=== PATIENT | male | born 1940 | race Caucasian/White ===

== ENCOUNTER 2021-04-05 04:03 | Inpatient (IN) | payer MEDICARE ==
[2021-04-05] VITALS (22 sets, daily range): BP systolic 70–157; BP diastolic 26–117
[~2021-04-05] VITALS: Ht 172.7 cm; Wt 84.5 kg
--- NOTE | 2021-04-05 04:13 | NUR ---
PT BIB RA 839 FROM [facility] FOR UNWITNESSED MECHANICAL FALL, ACCOMPANIED BY CAREGIVER. FOUND ON THE FLOOR NEXT TO BED. NO SOB OR LABORED BREATHING. MINIMAL SPEECH BUT NORMAL FOR PT, NO CHANGES IN LOC PER CORPORATE OPERATIONS COMPLIANCE MANAGER.
--- NOTE | 2021-04-05 04:22 | NUR ---
DR. DODSON AT BEDSIDE, MSE IN PROGRESS.
[2021-04-05] MEDS ORDERED: ROSU40TA PO (04:31)
[2021-04-05] MEDS ORDERED: APIX5TAB PO (04:31)
[2021-04-05] MEDS ORDERED: DIVA250T4 PO (04:31)
[2021-04-05] MEDS ORDERED: POTA-10 PO (04:31)
[2021-04-05] MEDS ORDERED: PANT20TA2 PO (04:31)
[2021-04-05] MEDS ORDERED: FINA5TAB3 PO (04:31)
[2021-04-05] MEDS ORDERED: TRAZ-257 PO (04:31)
[2021-04-05] MEDS ORDERED: CHOL400C8 PO (04:31)
[2021-04-05] MEDS ORDERED: SERT50TA PO (04:31)
[2021-04-05] MEDS ORDERED: DILTIAZEM HCL 25 MG IV IV ONE ×4 (04:45→09:00)
[2021-04-05] MEDS ORDERED: LIDOCAINE 2% (UROJET) 10 ML JELLY MM ONE ×2 (04:45→04:51)
--- NOTE | 2021-04-05 04:56 | NUR ---
LAB AT BEDSIDE.
[2021-04-05 05:08] LABS: HEMATOCRIT 45.5 % (36.7-47.1); MEAN CORPUSCULAR HEMOGLOBIN 31.2 uug (23.8-33.4); MEAN CORPUSCULAR VOLUME 93.2 fL (73.0-96.2); PLATELET COUNT (AUTO) 114 K/uL (152-348)
[2021-04-05] MEDS ORDERED: MAGNESIUM SULFATE/D5W 200 ML ONE (05:08)
[2021-04-05] MEDS ORDERED: DILTIAZEM HCL 25 MG IV ONE ×4 (05:08→08:59)
[2021-04-05 05:15] LABS: MAGNESIUM 2.3 mg/dL (1.8-2.4)
[2021-04-05] MEDS: MAGNESIUM SULFATE/D5W 100 ML IV SCH (05:15)
[2021-04-05 05:17] LABS: CREATININE 0.9 mg/dL (0.6-1.3); POTASSIUM 3.6 mmol/L (3.5-5.1)
[2021-04-05 05:22] LABS: *BILIRUBIN,URIN NEGATIVE (NEGATIVE); *BLOOD, URINE 3+ (NEGATIVE); *CLARITY,URINE CLEAR (CLEAR); *COLOR,URINE YELLOW (YELLOW); *KETONES,URINE NEGATIVE (NEGATIVE); LEUKOCYTE ESTERASE ,URINE NEGATIVE (NEGATIVE); NITRITE, URINE NEGATIVE (NEGATIVE); UGLUCOSE NEGATIVE (NEGATIVE)
--- NOTE | 2021-04-05 05:27 | NUR ---
PT TAKEN TO CT.
[2021-04-05 05:30] LABS: THYROID STIMULATING HORMONE 2.91 mIU/mL (0.358-3.740)
[2021-04-05 05:33] LABS: BACTERIA,URINE NONE SEEN /HPF (NONE SEEN); RBC,URINE TNTC /HPF (0-3); SQUAMOUS EPITHELIAL CELL,UR FEW /HPF (NONE SEEN); WBC,URINE 0-3 /HPF (0-3)
--- NOTE | 2021-04-05 05:43 | NUR ---
PT RETURNED FROM CT.
[2021-04-05] MEDS ORDERED: POTASSIUM BICARBONATE/CIT AC 25 MEQ TABLET.EFF PO ONE (05:45)
[2021-04-05 05:48] LABS: BAND % (MANUAL) 2 % (0-10); LYMPHOCYTES % (MANUAL) 3 % (20-40); MONOCYTES % (MANUAL) 4 % (2-10); NEUTROPHILS % (MANUAL) 91 % (42-75)
[2021-04-05] MEDS ORDERED: POTASSIUM BICARBONATE/CIT AC 25 MEQ TABLET.EFF ONE (05:52)
[2021-04-05] MEDS ORDERED: PROPOFOL 200 MG/20 ML BOTTLE IV ONE (06:00)
[2021-04-05] MEDS ORDERED: FENTANYL CITRATE 100 MCG/2 ML AMPUL IV ONE (06:00)
[2021-04-05] MEDS ORDERED: PROPOFOL 100 ML ONE (06:18)
[2021-04-05] MEDS ORDERED: FENTANYL CITRATE 100 MCG/2 ML AMPUL ONE (06:19)
--- NOTE | 2021-04-05 06:40 | NUR ---
PT CARDIOVERTED SCENE FOLLOWED. DR. DODSON, RT AND NURSES AT BEDSIDE. PATIENT GIVEN 150 J AT 0619 2ND SHOCK 150 J AT 0621 3RD SHOCK 200 J AT 0621 4TH SHOCK 200 J AT 0622
--- NOTE | 2021-04-05 06:43 | NUR ---
[facility] CALLED FOR PANEL.
--- NOTE | 2021-04-05 07:09 | NUR ---
GAVE REPORT TO TOÑA BANKS. PT NOTED TO BE IN BED. VITALS STABLE. NO SOB OR LABORED BREATHING. CAREGIVER AT BEDSIDE.
[2021-04-05] MEDS ORDERED: ATEN25TA PO (08:27)
--- NOTE | 2021-04-05 08:50 | NUR ---
Paged admitting Md Dr Morataya, regarding pt's increased a fib rate, awaiting call back.
--- NOTE | 2021-04-05 09:10 | NUR ---
MRSA and COVID swabs collected and sent to LAB.
[2021-04-05] MEDS ORDERED: Z GUARD REMEDY PASTE 57 GM TUBE TOP PRN (09:30)
[2021-04-05] MEDS ORDERED: MAGNESIUM HYDROXIDE 30 ML LIQUID UDC PO PRN (09:30)
[2021-04-05] MEDS ORDERED: ONDANSETRON 4 MG/2 ML VIAL IV PRN (09:30)
--- NOTE | 2021-04-05 09:30 | NUR ---
Spoke to Dr Morataya, order recieved to start pt on Cardizem drip per protocol. Pt BP remaines stable. Dr Wei cardio consult.
[2021-04-05] MEDS: DILTIAZEM HCL IV 125 MG in IV NORMAL SALINE 100 ML IV PRN ×2 (09:55→20:54)
--- NOTE | 2021-04-05 09:56 | NUR ---
Dr Wei at the bedside for MSE.
--- NOTE | 2021-04-05 10:03 | NUR ---
Cardizem increased to 10 mg/hr per Dr Sanjuana starkey.
--- NOTE | 2021-04-05 11:30 | NUR ---
Received patient from ER NURse. Patient in rapid afib with Cardizem drip running at 10Mg/hr, hemodynamically stable, with fever of 101. Requested lactic acid and notified Dr. grewal of left food redness and hot. US ordered of lower extremities. Notified dr cueto of redness and wound, andd lactic acid ordered. Bedside swallow eval completed and patient able to take whole pills with thin liquids
[2021-04-05] MEDS: IV NS 1000 ML 1,000 ML IV PRN (12:00)
--- NOTE | 2021-04-05 12:00 | NUR ---
Relayed results of lactic acid to Dr. Read in unit. No new orders at this time. Continue fluids per cardiology.
[2021-04-05] MEDS: DILTIAZEM HCL CD 240 MG CAP.SR.24H PO SCH (12:02)
[2021-04-05] MEDS: ACETAMINOPHEN 325 MG TABLET PO PRN ×2 (12:07→17:26)
[2021-04-05] MEDS: DIVALPROEX 250 MG TABLET.DR PO SCH ×2 (14:32→16:33)
--- NOTE | 2021-04-05 15:30 | NUR ---
Patient's Vidhi and son visited. Plan of care discussed. discussed code status and wants patient DNR/DNI. Tmoas Read notified. Addendum: 04/05/21 at 1832 by ELLA IBARRA RN Amended: Links added.
--- NOTE | 2021-04-05 16:30 | NUR ---
Code status DNR/DNI ordered. PM care done. Air mattress applied to bed. Skin care provided. Patient continues to grimace during care but remains non verbal.
[2021-04-05] MEDS: APIXABAN 5 MG TABLET PO SCH (16:33)
[2021-04-05 17:04] LABS: BILIRUBIN,DIRECT 0.1 mg/dL (0.0-0.2); BILIRUBIN,TOTAL 0.8 mg/dL (0.2-1.0)
--- NOTE | 2021-04-05 17:30 | NUR ---
Medicated with Tylenol po; med crushed and given with applesauce. Dinner served with maximum assist. No swallowing difficulty. Addendum: 04/05/21 at 1840 by ELLA IBARRA RN Amended: Links added.
--- NOTE | 2021-04-05 19:30 | NUR ---
Patient mildly restless, face flushed, skin warm and dry. Rectal temp xyskecz=557.3. Cool bath given. Patient repositioned; skin care provided. Prerna Read notified.
--- NOTE | 2021-04-05 20:05 | NUR ---
Spoke to Prerna Read. Plan of care discussed; orders received. Addendum: 04/05/21 at 2045 by ELLA IBARRA RN Amended: Links added. Addendum: 04/05/21 at 2045 by ELLA IBARRA RN Amended: Links added. Addendum: 04/05/21 at 2045 by ELLA IBARRA RN Amended: Links added. Addendum: 04/05/21 at 2045 by ELLA IBARRA RN Amended: Links added. Addendum: 04/05/21 at 2045 by ELLA IBARRA RN Amended: Links added. Addendum: 04/05/21 at 7 by ELLA IBARRA RN Amended: Links added.
--- NOTE | 2021-04-05 20:10 | NUR ---
Urine culture ordered. Spoke to Godwin in the lab re: urine culture order and to use specimen already in the lab.
[2021-04-05] MEDS: ATORVASTATIN 40 MG TABLET PO SCH (20:11)
[2021-04-05] MEDS: TRAZODONE 100 MG TABLET PO SCH (20:11)
[2021-04-05] MEDS ORDERED: IBUPROFEN 800 MG TABLET PO ONE (20:15)
[2021-04-05] MEDS ORDERED: IBUPROFEN 800 MG TABLET ONE (21:10)
[2021-04-06] VITALS (31 sets, daily range): BP systolic 90–159; BP diastolic 43–102
[2021-04-06] MEDS ORDERED: CEFTRIAXONE 2 G in IV DEXTROSE 5% 100 ML IV SCH (00:45)
[2021-04-06] MEDS: IV NS 1000 ML 1,000 ML IV PRN ×2 (00:59→18:18)
[2021-04-06] MEDS ORDERED: VANCOMYCIN IV 1,750 MG in IV DEXTROSE 5% 500 ML IV ONE (01:15)
[2021-04-06] MEDS ORDERED: VANCOMYCIN 1000 MG VIAL ONE (01:36)
[2021-04-06] MEDS ORDERED: CEFTRIAXONE 1 G VIAL ONE (01:37)
[2021-04-06] MEDS: ACETAMINOPHEN 325 MG TABLET PO PRN ×3 (03:23→20:46)
[2021-04-06 05:48] LABS: MEAN CORPUSCULAR HEMOGLOBIN 31.2 uug (23.8-33.4); MEAN CORPUSCULAR VOLUME 94.2 fL (73.0-96.2); PLATELET COUNT (AUTO) 75 K/uL (152-348)
[2021-04-06 05:59] LABS: BILIRUBIN,TOTAL 0.5 mg/dL (0.2-1.0); MAGNESIUM 2.3 mg/dL (1.8-2.4); PHOSPHOROUS 2.4 mg/dL (2.5-4.9); POTASSIUM 3.6 mmol/L (3.5-5.1)
[2021-04-06 06:18] LABS: BAND % (MANUAL) 14 % (0-10); LYMPHOCYTES % (MANUAL) 4 % (20-40); MONOCYTES % (MANUAL) 3 % (2-10); NEUTROPHILS % (MANUAL) 79 % (42-75)
--- NOTE | 2021-04-06 06:31 | NUR ---
Restless on and off during the night. Grimacing during repositioning and turning. Medicated with Tylenol PRN. po. for fever and pain. No swallowing difficulty. Incontinent of large strong smelly, semi soft, pasty brown stools. Tomas Read here. Aware of patient's condition. Orders received. Complete bath given; skin care provided. Stool for c diff sent to lab.
--- NOTE | 2021-04-06 06:38 | NUR ---
Remains on Cardizem drip at 10 mg/H. research physiologist still Afib rate 90's-110's. BPs stable.
--- NOTE | 2021-04-06 07:00 | NUR ---
Spoke to patient's Vidhi; consent for PICC line insertion obtained by phone. Asset Protection Lead Tiffany notified.
[2021-04-06] MEDS: PANTOPRAZOLE SODIUM 40 MG TABLET.DR PO SCH (07:09)
[2021-04-06] MEDS ORDERED: IV NS 1000 ML 1,000 ML IV ONE (07:30)
--- NOTE | 2021-04-06 07:45 | NUR ---
Received patient during IV insertion with x-ray confirmation. Patient is awake and alert, able to answer closed ended questions. Denies any pain. 3 lumen PICC inserted to left upper arm. Orders okay to start using PICC entered and carried out. Left forearm IV 20 g, patent and intact. Infusing normal saline at 75ml/hour. Still noted anxious and pulling at his lines. Rogers catheter is draining tonja urine. Safety measures initiated, repositioned. Call light within reach.
[2021-04-06] MEDS: SERTRALINE HCL 50 MG TABLET PO SCH (08:10)
[2021-04-06] MEDS: FINASTERIDE 5 MG TABLET PO SCH (08:10)
[2021-04-06] MEDS: APIXABAN 5 MG TABLET PO SCH ×2 (08:11→16:44)
[2021-04-06] MEDS: DIVALPROEX 250 MG TABLET.DR PO SCH ×3 (08:11→16:38)
[2021-04-06] MEDS: DILTIAZEM HCL CD 240 MG CAP.SR.24H PO SCH (08:12)
[2021-04-06] MEDS: DILTIAZEM HCL IV 125 MG in IV NORMAL SALINE 100 ML IV PRN (08:13)
[2021-04-06] MEDS ORDERED: ATENOLOL 25 MG TABLET PO SCH (09:00)
[2021-04-06] MEDS ORDERED: ROSUVASTATIN CALCIUM 40 MG PO SCH (09:00)
[2021-04-06] MEDS ORDERED: CEFEPIME HCL 1 G in IV DEXTROSE 5% 50 ML IV SCH (14:00)
[2021-04-06] MEDS: CEFEPIME HCL 1 G in IV DEXTROSE 5% 50 ML IV SCH (14:47)
[2021-04-06] MEDS ORDERED: NEUTRA PHOS PACKET PO ONE (15:45)
[2021-04-06] MEDS: VANCOMYCIN IV 1,000 MG in IV DEXTROSE 5% 250 ML IV SCH (16:43)
[2021-04-06] MEDS: ENSURE ENLIVE (VAN) 240 ML LIQUID PO SCH (17:00)
[2021-04-06] MEDS ORDERED: PHENYLEPHRINE IV 50 MG in IV NORMAL SALINE 245 ML IV PRN (19:45)
[2021-04-06] MEDS: ATORVASTATIN 40 MG TABLET PO SCH (20:46)
[2021-04-06] MEDS: TRAZODONE 100 MG TABLET PO SCH (20:46)
[2021-04-07] VITALS (24 sets, daily range): BP systolic 94–152; BP diastolic 47–91
[2021-04-07] MEDS: CEFEPIME HCL 1 G in IV DEXTROSE 5% 50 ML IV SCH ×2 (01:31→13:41)
[2021-04-07] MEDS: ACETAMINOPHEN 325 MG TABLET PO PRN (02:25)
--- NOTE | 2021-04-07 03:31 | NUR ---
Noted with increased heart rate 113-137. Orders noted and carried out for EKG. Patient is at rest and non symptomatic. Sleeping and easily arousable.
--- NOTE | 2021-04-07 04:11 | NUR ---
Dr. Masters made aware of patient sustaining HR of 130's with occasional 140's. B/p 148/63. Asymptomatic. Stat EKG reading is A-Fib with rapid ventricular response. with 138BMP. Orders to restart Cardizem drip.
[2021-04-07] MEDS ORDERED: DILTIAZEM HCL 25 MG IV ONE (04:45)
[2021-04-07] MEDS: DILTIAZEM HCL IV 125 MG in IV NORMAL SALINE 100 ML IV PRN ×2 (04:50→17:26)
--- NOTE | 2021-04-07 04:50 | NUR ---
Started Cardizem 125mg in 100 normal saline at 5mg. Unable to sign for it in EMAR due to units required. HR is 138 at this time.
--- NOTE | 2021-04-07 05:15 | NUR ---
Cardizem titrated to 10mg/ hr. Hr remains in the 130's with occasional decrease to 117-118. Patient remains asymptomatic. B/P 100/65.
[2021-04-07] MEDS: VANCOMYCIN IV 1,000 MG in IV DEXTROSE 5% 250 ML IV SCH ×2 (05:38→19:49)
[2021-04-07 05:53] LABS: HEMATOCRIT 37.5 % (36.7-47.1); MEAN CORPUSCULAR HEMOGLOBIN 31.5 uug (23.8-33.4); MEAN CORPUSCULAR VOLUME 93.2 fL (73.0-96.2); PLATELET COUNT (AUTO) 54 K/uL (152-348)
[2021-04-07 05:58] LABS: ALANINE AMINOTRANSFERASE 20 U/L (16-63); ALKALINE PHOSPHATASE 56 U/L (50-136); ASPARTATE AMINOTRANSFERASE 21 U/L (15-37); BILIRUBIN,TOTAL 0.5 mg/dL (0.2-1.0); CARBON DIOXIDE 26 mmol/L (21-32); CHLORIDE 107 mmol/L (98-107); CREATININE 0.8 mg/dL (0.6-1.3); GLUCOSE 122 mg/dL (74-106); MAGNESIUM 2.3 mg/dL (1.8-2.4); PHOSPHOROUS 2.2 mg/dL (2.5-4.9); POTASSIUM 3.8 mmol/L (3.5-5.1); TOTAL PROTEIN, SERUM 5.2 g/dL (6.4-8.2); UREA NITROGEN, BLOOD 18 mg/dL (7-18)
[2021-04-07] MEDS: PANTOPRAZOLE SODIUM 40 MG TABLET.DR PO SCH (06:00)
[2021-04-07 06:20] LABS: BAND % (MANUAL) 7 % (0-10); EOSINOPHILS % (MANUAL) 1 % (0-8); LYMPHOCYTES % (MANUAL) 3 % (20-40); MONOCYTES % (MANUAL) 7 % (2-10); NEUTROPHILS % (MANUAL) 82 % (42-75)
[2021-04-07] MEDS: DIVALPROEX 250 MG TABLET.DR PO SCH ×3 (08:02→17:26)
[2021-04-07] MEDS: DILTIAZEM HCL CD 240 MG CAP.SR.24H PO SCH (08:02)
[2021-04-07] MEDS: FINASTERIDE 5 MG TABLET PO SCH (08:03)
[2021-04-07] MEDS: ENSURE ENLIVE (VAN) 240 ML LIQUID PO SCH ×2 (08:06→17:26)
[2021-04-07] MEDS: APIXABAN 5 MG TABLET PO SCH (08:12)
[2021-04-07] MEDS: SERTRALINE HCL 50 MG TABLET PO SCH (08:25)
[2021-04-07] MEDS: IV NS 1000 ML 1,000 ML IV PRN ×2 (09:18→23:35)
[2021-04-07] MEDS ORDERED: NEUTRA PHOS PACKET PO ONE (15:15)
--- NOTE | 2021-04-07 20:00 | NUR ---
received pt resting on bed with ongoing cardizem drip at 10mg/hr; repositioned for comfort; safety maintained; dark brown urine output from bonds observed.
[2021-04-07] MEDS: TRAZODONE 100 MG TABLET PO SCH (20:33)
[2021-04-07] MEDS: ATORVASTATIN 40 MG TABLET PO SCH (20:41)
[2021-04-08] VITALS (23 sets, daily range): BP systolic 110–151; BP diastolic 58–106
--- NOTE | 2021-04-08 | NUR ---
repositioned q2h; safety maintained; remains tachy 100-120 bpm afib rvr on tele; needs attended.
[2021-04-08] MEDS: CEFEPIME HCL 1 G in IV DEXTROSE 5% 50 ML IV SCH (01:14)
[2021-04-08] MEDS ORDERED: DILTIAZEM HCL 25 MG IV ONE (03:21)
[2021-04-08] MEDS ORDERED: DILTIAZEM HCL 50 MG IV ONE (03:21)
[2021-04-08] MEDS: DILTIAZEM HCL IV 125 MG in IV NORMAL SALINE 100 ML IV PRN (04:30)
[2021-04-08 05:18] LABS: HEMATOCRIT 35.4 % (36.7-47.1); MEAN CORPUSCULAR HEMOGLOBIN 31.9 uug (23.8-33.4); MEAN CORPUSCULAR VOLUME 91.9 fL (73.0-96.2)
[2021-04-08 05:29] LABS: PLATELET COUNT (AUTO) 46 K/uL (152-348)
[2021-04-08 05:31] LABS: CARBON DIOXIDE 29 mmol/L (21-32); CHLORIDE 108 mmol/L (98-107); CREATININE 0.7 mg/dL (0.6-1.3); GLUCOSE 107 mg/dL (74-106); PHOSPHOROUS 2.4 mg/dL (2.5-4.9); POTASSIUM 3.8 mmol/L (3.5-5.1); UREA NITROGEN, BLOOD 15 mg/dL (7-18)
[2021-04-08 05:58] LABS: EOSINOPHILS % (MANUAL) 3 % (0-8); LYMPHOCYTES % (MANUAL) 3 % (20-40); MONOCYTES % (MANUAL) 7 % (2-10); NEUTROPHILS % (MANUAL) 87 % (42-75)
[2021-04-08] MEDS: PANTOPRAZOLE SODIUM 40 MG TABLET.DR PO SCH (06:16)
[2021-04-08] MEDS: SERTRALINE HCL 50 MG TABLET PO SCH (08:24)
[2021-04-08] MEDS: ENSURE ENLIVE (VAN) 240 ML LIQUID PO SCH ×2 (08:24→17:12)
[2021-04-08] MEDS: FINASTERIDE 5 MG TABLET PO SCH (08:24)
[2021-04-08] MEDS: DILTIAZEM HCL CD 240 MG CAP.SR.24H PO SCH (08:25)
[2021-04-08] MEDS: DIVALPROEX 250 MG TABLET.DR PO SCH ×3 (08:26→17:12)
[2021-04-08] MEDS ORDERED: DIGOXIN 500 MCG/2 ML AMP IV ONE ×2 (09:00→15:00)
--- NOTE | 2021-04-08 09:00 | NUR ---
Pulmonary services, Dr. Ruiz in the unit to see and examine pt. report given see order hx.
--- NOTE | 2021-04-08 09:00 | NUR ---
Cardiology services, Dr. Ruiz in the unit to see and examine pt. report given and orders received and implemented. Addendum: 04/08/21 at 1706 by JESUS STERN RN Orders to dcd cardideidra alicia once pt's heart rate less than 100.
[2021-04-08] MEDS: VANCOMYCIN IV 1,000 MG in IV DEXTROSE 5% 250 ML IV SCH (09:10)
[2021-04-08] MEDS ORDERED: FUROSEMIDE 20 MG/2 ML VIAL IV ONE (09:30)
--- NOTE | 2021-04-08 12:28 | NUR ---
WOUND CARE CONSULT: PT PRESENTS WITH LEFT 2ND TOE DISCOLORATION/DRY SCAB WHICH WAS PRESENT ON ADMISSION PER NURSING STAFF. REDNESS AND SWELLING NOTED TO LEFT LOWER EXTREMITY. DR SAUCEDO NOTIFIED OF DPM CONSULT REQUEST. RECOMMENDATIONS MADE FOR SKIN PROTECTION. DISCUSSED WITH NURSING STAFF. MD IN AGREEMENT WITH PLAN OF CARE.
[2021-04-08] MEDS: CLINDAMYCIN PHOSPHATE IV 600 MG in IV DEXTROSE 5% 100 ML IV SCH ×2 (13:51→21:44)
[2021-04-08] MEDS: ACETAMINOPHEN 325 MG TABLET PO PRN (16:00)
[2021-04-08] MEDS ORDERED: NEUTRA PHOS PACKET PO ONE (16:30)
--- NOTE | 2021-04-08 19:00 | NUR ---
received patient awake , unable to follow command , picc line , intact remy , bonds intact , oxygen 4l , nc , swelling on bilateral ankle noted with redness noted more prominent on left leg , afib on 102 hr , with sbp 137/81 , 94% saturation , no fever noted
--- NOTE | 2021-04-08 19:00 | NUR ---
received patient cardizem maral dc'd as reported , patient received 2x digoxin ivp today
[2021-04-08] MEDS: TRAZODONE 100 MG TABLET PO SCH (20:33)
[2021-04-08] MEDS: ATORVASTATIN 40 MG TABLET PO SCH (20:33)
--- NOTE | 2021-04-08 20:51 | NUR ---
nora squires , is here at bedside , called the and gave an update on patient's condition
[2021-04-09] VITALS (22 sets, daily range): BP systolic 123–169; BP diastolic 66–115
[2021-04-09] MEDS: ACETAMINOPHEN 325 MG TABLET PO PRN ×2 (01:07→10:48)
[2021-04-09] MEDS ORDERED: DILTIAZEM HCL IV 125 MG in IV NORMAL SALINE 100 ML IV PRN ×2 (04:30→08:00)
[2021-04-09] MEDS ORDERED: DILTIAZEM HCL 25 MG IV ONE (05:03)
[2021-04-09] MEDS: CLINDAMYCIN PHOSPHATE IV 600 MG in IV DEXTROSE 5% 100 ML IV SCH ×3 (05:15→22:06)
[2021-04-09 05:19] LABS: HEMATOCRIT 36.9 % (36.7-47.1); MEAN CORPUSCULAR HEMOGLOBIN 31.5 uug (23.8-33.4); MEAN CORPUSCULAR VOLUME 92.6 fL (73.0-96.2); PLATELET COUNT (AUTO) 52 K/uL (152-348)
--- NOTE | 2021-04-09 05:30 | NUR ---
rachel is called to inform of increasing hear rate , waiting for call back
[2021-04-09 05:32] LABS: CREATININE 0.7 mg/dL (0.6-1.3); MAGNESIUM 2.2 mg/dL (1.8-2.4); PHOSPHOROUS 3.2 mg/dL (2.5-4.9); POTASSIUM 3.6 mmol/L (3.5-5.1)
--- NOTE | 2021-04-09 06:00 | NUR ---
dr joshua is called again for the heart rate , waiting for call still
[2021-04-09] MEDS: PANTOPRAZOLE SODIUM 40 MG TABLET.DR PO SCH (06:41)
--- NOTE | 2021-04-09 07:15 | NUR ---
Received pt. sleeping easily arousable. Hemodynamically unstable Afib uncontrolled in the 130's 140's with sbp within desired limits. On 2Lnc with saturation above 92% no tachynea or sob noted. bonds to gravity. Iv line patent. Will continue with care plan.
--- NOTE | 2021-04-09 07:50 | NUR ---
A call back from drill press operator numerical control Dr. Ruiz He was updated on pt's current condition and orders to restart pt. on cardize drip received and implemented.
[2021-04-09] MEDS: ENSURE ENLIVE (VAN) 240 ML LIQUID PO SCH ×2 (08:16→17:36)
[2021-04-09] MEDS: DIVALPROEX 250 MG TABLET.DR PO SCH ×3 (08:17→17:36)
[2021-04-09] MEDS: SERTRALINE HCL 50 MG TABLET PO SCH (08:19)
[2021-04-09] MEDS: FINASTERIDE 5 MG TABLET PO SCH (08:19)
[2021-04-09] MEDS: DILTIAZEM HCL CD 240 MG CAP.SR.24H PO SCH (08:21)
[2021-04-09] MEDS ORDERED: DILTIAZEM HCL CD 120 MG CAP.SR.24H PO ONE (10:00)
[2021-04-09] MEDS ORDERED: DIGOXIN 500 MCG/2 ML AMP IV ONE (10:00)
--- NOTE | 2021-04-09 11:38 | NUR ---
Dr. Mckeon laminator hand in the unit to see and examine pt. report given see order hx.
[2021-04-09] MEDS: METOPROLOL TARTRATE 50 MG TABLET PO SCH ×2 (15:36→22:07)
--- NOTE | 2021-04-09 15:54 | NUR ---
cardiology services, Dr. Ruiz in the unit to see and examine pt. orders received and implemented.
--- NOTE | 2021-04-09 15:56 | NUR ---
HR sustained in the 80's and 90's and cardizem drip stopped as ordered. Dr. Ruiz informed.
[2021-04-09] MEDS ORDERED: hydrALAZINE HCL 20 MG/1 ML VIAL IV PRN (18:30)
--- NOTE | 2021-04-09 18:30 | NUR ---
A call to Dr. Ruiz to update him on pt's current sbp above 160's consistently during the last hour. Orders received. and recommendations to give medication if sbp is above 170's on resting state, not restless or agitated reading.
--- NOTE | 2021-04-09 18:37 | NUR ---
Left pt. on bed resting neurologically stable responsive to name only. On NC 2L joaquin. well with saturation within desired limits. Hemodynamically stable rate controlled after receiving first dose of metoprolol. Off cardizem drip since 1600. Afebrile. Tolerating diet well with no n/v/d. bonds to gravity. IV line patent. No injury sustained no skin breakdown. Will endorse for continuity of care plan.
--- NOTE | 2021-04-09 18:51 | NUR ---
A call from Jay Humphreys report given and as stated I'll put orders to down-grade pt. to DAMON and if Pt needs to go back on cardizem drip it will be a fixed dose only". Awaiting orders.
--- NOTE | 2021-04-09 19:00 | NUR ---
rcceived patient sleeping , arousable to name and light touch . oxygen nc 4 l , picc line and bonds intact , no fever noted
--- NOTE | 2021-04-09 20:14 | NUR ---
shaw , id is at bedside
[2021-04-09] MEDS: ATORVASTATIN 40 MG TABLET PO SCH (20:47)
[2021-04-09] MEDS: TRAZODONE 100 MG TABLET PO SCH (20:49)
--- NOTE | 2021-04-09 21:00 | NUR ---
gave report to carmen , history and current status , procedures ,medications , no belongings . order picker by primary nurse and financial planning assistant
[2021-04-10 04:50] VITALS: BP 156/99
[2021-04-10] MEDS: CLINDAMYCIN PHOSPHATE IV 600 MG in IV DEXTROSE 5% 100 ML IV SCH ×3 (06:13→23:07)
[2021-04-10] MEDS: METOPROLOL TARTRATE 50 MG TABLET PO SCH ×3 (06:17→23:36)
[2021-04-10] MEDS: PANTOPRAZOLE SODIUM 40 MG TABLET.DR PO SCH (06:23)
[2021-04-10 08:00] VITALS: BP 148/109
--- NOTE | 2021-04-10 08:00 | NUR ---
RESTING COMFORTABLY IN BED NO SS OF PAIN OR DISTRESS, ASSISTED FOR BREAKFAST ATE 100% OF FOOD PORTION. REMAINS AFIB ON MONITOR 100-108/MIN. CONTINUE CURRENT TX PLAN
[2021-04-10] MEDS: SERTRALINE HCL 50 MG TABLET PO SCH (08:46)
[2021-04-10] MEDS: ENSURE ENLIVE (VAN) 240 ML LIQUID PO SCH ×2 (08:46→17:51)
[2021-04-10] MEDS: FINASTERIDE 5 MG TABLET PO SCH (08:46)
[2021-04-10] MEDS: DIVALPROEX 250 MG TABLET.DR PO SCH ×3 (08:46→17:51)
[2021-04-10] MEDS: DILTIAZEM HCL CD 180 MG CAP.SR.24H PO SCH (08:48)
--- NOTE | 2021-04-10 10:15 | NUR ---
PATIENT FOUND BY BARNWORKER GROOM ON THE FLOOR INSIDE HIS ROOM LEANING AGAINST THE WALL. PATIENT CAN'T REMEMBER WHAT HE DID. ROUTINE HEAD TO TOE POST FALL ASSESSMENT DONE, NO BRUISING, NO LIMITATION ON ALL EXTREMITIES. ASSISTED BACK TO BED. VITAL SIGNS WNL. WILL NOTIFY FAMILY AND HOSPITALIST
[2021-04-10 10:35] LABS: HEMATOCRIT 39.7 % (36.7-47.1); MEAN CORPUSCULAR HEMOGLOBIN 31.3 uug (23.8-33.4); PLATELET COUNT (AUTO) 68 K/uL (152-348)
[2021-04-10 11:24] LABS: BILIRUBIN,TOTAL 0.5 mg/dL (0.2-1.0); CREATININE 0.6 mg/dL (0.6-1.3); MAGNESIUM 2.2 mg/dL (1.8-2.4); POTASSIUM 3.7 mmol/L (3.5-5.1); TOTAL PROTEIN, SERUM 5.3 g/dL (6.4-8.2)
[2021-04-10 12:00] VITALS: BP 141/96
--- NOTE | 2021-04-10 12:00 | NUR ---
RESTING COMFORTABLY IN BED NO ACUTE CHANGE FROM MORNING ASSESSMENT
--- NOTE | 2021-04-10 13:00 | NUR ---
AND SON IN INFORMED ABOUT INCIDENT BOTH VERY SUPPORTIVE WITH CARE. PATIENT REMAINS ALERT BUT CONFUSED, NO SS OF PAIN OR TAMAYO, NO N/V
[2021-04-10 16:49] VITALS: BP 131/95
--- NOTE | 2021-04-10 18:52 | NUR ---
NO ILL EFFECT FROM FALL NOTED, AWAITING CT HEAD RESULTS. CONTROLLED AFIB ON MONITOR
--- NOTE | 2021-04-10 19:30 | NUR ---
Received patient in Miracle chair. Patient is confused, he is sleeping intermittently. Patient is kept comfortably and kept monitored. Patient is stable at this time. Safety precautions implemented. Will continue to monitor.
[2021-04-10 20:00] VITALS: BP 111/59
[2021-04-10] MEDS: ATORVASTATIN 40 MG TABLET PO SCH (21:18)
[2021-04-10] MEDS: TRAZODONE 100 MG TABLET PO SCH (21:18)
[2021-04-10 23:17] LABS: NEUTROPHILS % (MANUAL) 0 % (42-75)
[2021-04-11] VITALS: BP 143/97
[2021-04-11 04:00] VITALS: BP 155/95
[2021-04-11] MEDS: CLINDAMYCIN PHOSPHATE IV 600 MG in IV DEXTROSE 5% 100 ML IV SCH ×3 (06:10→21:09)
[2021-04-11] MEDS: METOPROLOL TARTRATE 50 MG TABLET PO SCH ×3 (06:11→23:03)
[2021-04-11] MEDS: PANTOPRAZOLE SODIUM 40 MG TABLET.DR PO SCH (06:11)
[2021-04-11] MEDS: SERTRALINE HCL 50 MG TABLET PO SCH (08:01)
[2021-04-11] MEDS: DIGOXIN 125 MCG TABLET PO SCH (08:01)
[2021-04-11] MEDS: DILTIAZEM HCL CD 180 MG CAP.SR.24H PO SCH (08:01)
[2021-04-11] MEDS: DIVALPROEX 250 MG TABLET.DR PO SCH ×3 (08:01→16:37)
[2021-04-11] MEDS: FINASTERIDE 5 MG TABLET PO SCH (08:01)
[2021-04-11] MEDS: ENSURE ENLIVE (VAN) 240 ML LIQUID PO SCH ×2 (08:02→16:38)
[2021-04-11] MEDS: FUROSEMIDE 20 MG TABLET PO SCH (09:01)
--- NOTE | 2021-04-11 10:48 | NUR ---
returned call to katlin all questions answered. requesting call from Dr. David, Dr. David informed.
[2021-04-11 12:00] VITALS: BP 135/60
[2021-04-11] MEDS: OLANZAPINE 2.5 MG TABLET PO SCH (13:40)
[2021-04-11 16:15] VITALS: BP 155/90
[2021-04-11 16:18] LABS: ALANINE AMINOTRANSFERASE 148 U/L (16-63); ALKALINE PHOSPHATASE 75 U/L (50-136); ASPARTATE AMINOTRANSFERASE 55 U/L (15-37); BILIRUBIN,TOTAL 0.5 mg/dL (0.2-1.0); CARBON DIOXIDE 34 mmol/L (21-32); CHLORIDE 107 mmol/L (98-107); CREATININE 0.6 mg/dL (0.6-1.3); GLUCOSE 144 mg/dL (74-106); POTASSIUM 3.6 mmol/L (3.5-5.1); TOTAL PROTEIN, SERUM 5.7 g/dL (6.4-8.2); UREA NITROGEN, BLOOD 15 mg/dL (7-18)
[2021-04-11 16:21] LABS: HEMATOCRIT 41.2 % (36.7-47.1); MEAN CORPUSCULAR HEMOGLOBIN 31.4 uug (23.8-33.4); MEAN CORPUSCULAR VOLUME 93.1 fL (73.0-96.2); PLATELET COUNT (AUTO) 112 K/uL (152-348)
[2021-04-11 20:45] VITALS: BP 135/95
[2021-04-11] MEDS: ATORVASTATIN 40 MG TABLET PO SCH (21:02)
[2021-04-11] MEDS: TRAZODONE 100 MG TABLET PO SCH (21:02)
[2021-04-12 01:31] VITALS: BP 126/81
[2021-04-12 04:22] VITALS: BP 159/98
[2021-04-12] MEDS: CLINDAMYCIN PHOSPHATE IV 600 MG in IV DEXTROSE 5% 100 ML IV SCH ×2 (05:19→13:35)
[2021-04-12] MEDS: PANTOPRAZOLE SODIUM 40 MG TABLET.DR PO SCH (06:04)
[2021-04-12] MEDS: METOPROLOL TARTRATE 50 MG TABLET PO SCH ×3 (06:05→23:22)
--- NOTE | 2021-04-12 06:36 | NUR ---
Received resident awake on bed upon initial rounds. Slept intermittently throughout the night. On O2 at 4L via NC, no respiratory distress noted. Controlled/uncontrolled A-fib on Tele. Due meds given on time and tolerated well. All needs attended. Frequent visual checks done. Will endorse to next shift.
[2021-04-12 07:02] LABS: HEMATOCRIT 40.2 % (36.7-47.1); MEAN CORPUSCULAR HEMOGLOBIN 30.9 uug (23.8-33.4); MEAN CORPUSCULAR VOLUME 92.7 fL (73.0-96.2); PLATELET COUNT (AUTO) 106 K/uL (152-348)
[2021-04-12 07:15] LABS: CREATININE 0.6 mg/dL (0.6-1.3); MAGNESIUM 2.1 mg/dL (1.8-2.4); PHOSPHOROUS 3.1 mg/dL (2.5-4.9); POTASSIUM 3.8 mmol/L (3.5-5.1)
[2021-04-12] MEDS: ENSURE ENLIVE (VAN) 240 ML LIQUID PO SCH ×2 (08:36→18:13)
[2021-04-12] MEDS: DILTIAZEM HCL CD 180 MG CAP.SR.24H PO SCH (08:38)
[2021-04-12] MEDS: OLANZAPINE 2.5 MG TABLET PO SCH (08:39)
[2021-04-12] MEDS: DIGOXIN 125 MCG TABLET PO SCH (08:39)
[2021-04-12] MEDS: DIVALPROEX 250 MG TABLET.DR PO SCH ×3 (08:39→16:32)
[2021-04-12] MEDS: FUROSEMIDE 20 MG TABLET PO SCH (08:39)
[2021-04-12] MEDS: FINASTERIDE 5 MG TABLET PO SCH (08:39)
[2021-04-12] MEDS: APIXABAN 5 MG TABLET PO SCH ×2 (09:01→21:18)
[2021-04-12] MEDS: ACETAMINOPHEN 325 MG TABLET PO PRN (16:37)
--- NOTE | 2021-04-12 20:35 | NUR ---
Patient awake, tele monitor A fib, no sob no chest pain, on 4 liter NC sat 96%. Patient left leg cellulitis has little redness noted, no s/s of increase in size, tolerate diet as ordered, cont to monitor.
[2021-04-12 20:51] VITALS: BP 119/84
[2021-04-12] MEDS: CLINDAMYCIN HCL 300 MG CAPSULE PO SCH (21:16)
[2021-04-12] MEDS: TRAZODONE 100 MG TABLET PO SCH (21:16)
[2021-04-12] MEDS: ATORVASTATIN 40 MG TABLET PO SCH (21:17)
[2021-04-13 00:40] VITALS: BP 139/97
[2021-04-13 04:25] VITALS: BP 144/96
[2021-04-13] MEDS: CLINDAMYCIN HCL 300 MG CAPSULE PO SCH ×2 (05:53→14:15)
[2021-04-13] MEDS: METOPROLOL TARTRATE 50 MG TABLET PO SCH ×3 (06:03→23:00)
[2021-04-13] MEDS: PANTOPRAZOLE SODIUM 40 MG TABLET.DR PO SCH (06:03)
--- NOTE | 2021-04-13 06:30 | NUR ---
Patient awake no sob no chest pain, tolerate pureed diet, tele monitor a fib , hr 104, given metoprolol as ordered. Patient has no cough or congestion noted, kept hob. v/s stable, cont to monitor.
--- NOTE | 2021-04-13 07:30 | NUR ---
Received patient in bed awake but not verbally responding to prompts. Patient is confused, he is sleeping intermittently. Patient is kept comfortable and monitored frequently. Patient is stable at this time. Safety precautions implemented. Will continue to monitor.
[2021-04-13 07:45] LABS: MEAN CORPUSCULAR VOLUME 92.4 fL (73.0-96.2); PLATELET COUNT (AUTO) 114 K/uL (152-348)
[2021-04-13 07:52] LABS: CREATININE 0.7 mg/dL (0.6-1.3); MAGNESIUM 2.2 mg/dL (1.8-2.4); PHOSPHOROUS 2.9 mg/dL (2.5-4.9); POTASSIUM 3.8 mmol/L (3.5-5.1)
[2021-04-13 07:57] LABS: NEUTROPHILS % (MANUAL) 0 % (42-75)
[2021-04-13] MEDS: ENSURE ENLIVE (VAN) 240 ML LIQUID PO SCH ×2 (08:12→16:19)
[2021-04-13 08:17] VITALS: BP 148/78
[2021-04-13] MEDS: FINASTERIDE 5 MG TABLET PO SCH (09:14)
[2021-04-13] MEDS: OLANZAPINE 2.5 MG TABLET PO SCH (09:14)
[2021-04-13] MEDS: DIVALPROEX 250 MG TABLET.DR PO SCH (09:14)
[2021-04-13] MEDS: FUROSEMIDE 20 MG TABLET PO SCH (09:15)
[2021-04-13] MEDS: DILTIAZEM HCL CD 180 MG CAP.SR.24H PO SCH (09:15)
[2021-04-13] MEDS: APIXABAN 5 MG TABLET PO SCH ×2 (09:16→22:17)
[2021-04-13] MEDS: DIGOXIN 125 MCG TABLET PO SCH (09:16)
[2021-04-13] MEDS ORDERED: Z GUARD REMEDY PASTE 57 GM TUBE TOP PRN (12:00)
[2021-04-13 13:10] VITALS: BP 136/80
[2021-04-13] MEDS ORDERED: TRAZODONE 100 MG TABLET PO PRN (14:00)
[2021-04-13 16:42] VITALS: BP 103/79
--- NOTE | 2021-04-13 18:43 | NUR ---
Patient kept safe in bed through out shift. Patient appeared really sedated throughout shift. Made hospital Petr aware. Depakote discontinued. Will endorse a condom cath and UA collection to oncoming nurse because i was unable to get to it on my shift. All medications given as ordered. Safety measure implemented. Will endorse to oncoming nurse.
--- NOTE | 2021-04-13 19:45 | NUR ---
Received patient in bed awake but not verbally responsive, still confused. Reoriented patient to time and place. IV on LFA heplock and HILARIA PICC lumen, patent and intact. On tele monitor, showing 1L O2 via NC saturating 95%. With bonds catheter, draining clear clear yellow urine. Safety and comfort measures initiated. Will continue to monitor. Addendum: 04/14/21 at 0408 by ROSELINE SAMSON RN Patient with no bonds catheter.
[2021-04-13 20:54] VITALS: BP 137/78
[2021-04-13] MEDS: ATORVASTATIN 40 MG TABLET PO SCH (21:47)
[2021-04-13] MEDS ORDERED: CLONIDINE-TTS 1 PATCH TD SCH (22:30)
[2021-04-13] MEDS ORDERED: ENALAPRILAT DIHYDRATE 1.25 MG/1 ML VIAL IV PRN (22:30)
[2021-04-14 00:57] VITALS: BP 146/79
[2021-04-14 04:47] VITALS: BP 142/85
[2021-04-14 06:22] LABS: *BILIRUBIN,URIN NEGATIVE (NEGATIVE); *BLOOD, URINE 1+ (NEGATIVE); *CLARITY,URINE CLEAR (CLEAR); *COLOR,URINE YELLOW (YELLOW); *KETONES,URINE NEGATIVE (NEGATIVE); *UROBILINOGEN,URINE 0.2 E.U./dl (NORMAL); LEUKOCYTE ESTERASE ,URINE NEGATIVE (NEGATIVE); NITRITE, URINE NEGATIVE (NEGATIVE); PH,URINE 8.5 (5.0-8.0); UGLUCOSE NEGATIVE (NEGATIVE)
[2021-04-14 06:37] LABS: BACTERIA,URINE NONE SEEN /HPF (NONE SEEN); RBC,URINE 0-3 /HPF (0-3); SQUAMOUS EPITHELIAL CELL,UR NONE SEEN /HPF (NONE SEEN); URINE AMORPHOUS PHOSPHATES MANY /HPF; WBC,URINE 0-3 /HPF (0-3)
[2021-04-14] MEDS: METOPROLOL TARTRATE 50 MG TABLET PO SCH ×3 (06:48→23:15)
[2021-04-14] MEDS: PANTOPRAZOLE SODIUM 40 MG TABLET.DR PO SCH (06:48)
--- NOTE | 2021-04-14 06:58 | NUR ---
Patient slept through the night. Awake and alert, however, not oriented to self, date and place. Reoriented patient accordingly. On tele monitor, controlled A-fbi with HR of 121bpm. On 1L O2 via NC saturating 95%. IV on LFA heplock and HILARIA PICC lumen, patent and intact. Oral care done. Urine collected using aseptic technique, sent to laboratory. Safety and comfort measures maintained. Will endorse to day shift.
[2021-04-14 07:46] LABS: HEMATOCRIT 41.8 % (36.7-47.1); MEAN CORPUSCULAR HEMOGLOBIN 31.1 uug (23.8-33.4); PLATELET COUNT (AUTO) 119 K/uL (152-348)
--- NOTE | 2021-04-14 08:00 | NUR ---
Aspiration precaution implemented. PT ate 50% of his meals. pt awake and alert x 1 [address]oriented [address] time and place. Bed alarm on for Fall Precaution.
--- NOTE | 2021-04-14 08:00 | NUR ---
PICC LINE PULLED OUT by patient measured the picc at 43 marker. Addendum: 04/15/21 at 1820 by CURTIS MORILLO RN 43 marker comparable with charting of nelia perez for the internal length.
[2021-04-14 08:16] LABS: CREATININE 0.7 mg/dL (0.6-1.3); MAGNESIUM 2.1 mg/dL (1.8-2.4); PHOSPHOROUS 3.2 mg/dL (2.5-4.9); POTASSIUM 4.2 mmol/L (3.5-5.1)
[2021-04-14] MEDS: DILTIAZEM HCL CD 180 MG CAP.SR.24H PO SCH (08:42)
[2021-04-14] MEDS: DIGOXIN 125 MCG TABLET PO SCH (08:42)
[2021-04-14] MEDS: FUROSEMIDE 20 MG TABLET PO SCH (08:43)
[2021-04-14] MEDS: FINASTERIDE 5 MG TABLET PO SCH (08:43)
[2021-04-14] MEDS: APIXABAN 5 MG TABLET PO SCH ×2 (08:44→20:52)
[2021-04-14] MEDS: ENSURE ENLIVE (VAN) 240 ML LIQUID PO SCH ×2 (08:49→17:57)
[2021-04-14 12:00] VITALS: BP 106/79
[2021-04-14 16:00] VITALS: BP 99/77
[2021-04-14] MEDS: OLANZAPINE 2.5 MG TABLET PO PRN (17:52)
--- NOTE | 2021-04-14 18:00 | NUR ---
Pt has increase confusion. Zyprexa given for psychosis. PT is in no acute distress. Call light is within reach.
[2021-04-14 20:12] VITALS: BP 121/85
[2021-04-14] MEDS: ATORVASTATIN 40 MG TABLET PO SCH (20:51)
[2021-04-14 23:13] VITALS: BP 115/80
[2021-04-15 04:12] VITALS: BP 123/95
[2021-04-15] MEDS: METOPROLOL TARTRATE 50 MG TABLET PO SCH ×3 (06:11→23:15)
[2021-04-15] MEDS: PANTOPRAZOLE SODIUM 40 MG TABLET.DR PO SCH (06:11)
--- NOTE | 2021-04-15 06:59 | NUR ---
Patient rested well in between care; no acute distress; repositioned; needs attended; safety maintained
[2021-04-15 07:43] LABS: MEAN CORPUSCULAR HEMOGLOBIN 30.9 uug (23.8-33.4); MEAN CORPUSCULAR VOLUME 92.3 fL (73.0-96.2); PLATELET COUNT (AUTO) 124 K/uL (152-348)
[2021-04-15 08:02] LABS: CREATININE 0.8 mg/dL (0.6-1.3); MAGNESIUM 2.4 mg/dL (1.8-2.4); PHOSPHOROUS 3.4 mg/dL (2.5-4.9); POTASSIUM 4.6 mmol/L (3.5-5.1)
[2021-04-15] MEDS: FINASTERIDE 5 MG TABLET PO SCH (08:58)
[2021-04-15] MEDS ORDERED: CLOTRIMAZOLE 1% CREAM 30 GM TUBE TOP SCH (09:00)
[2021-04-15] MEDS: APIXABAN 5 MG TABLET PO SCH ×2 (09:03→20:32)
[2021-04-15] MEDS: FUROSEMIDE 20 MG TABLET PO SCH (09:05)
[2021-04-15] MEDS: DIGOXIN 125 MCG TABLET PO SCH (09:05)
[2021-04-15] MEDS: CLOTRIMAZOLE 1% CREAM 30 GM TUBE TOP SCH ×2 (09:06→17:29)
[2021-04-15] MEDS: ENSURE ENLIVE (VAN) 240 ML LIQUID PO SCH ×2 (09:06→17:29)
[2021-04-15] MEDS: DILTIAZEM HCL CD 180 MG CAP.SR.24H PO SCH (09:06)
[2021-04-15] MEDS ORDERED: LORAZEPAM 2 MG/1 ML VIAL IV ONE (11:30)
[2021-04-15 11:48] VITALS: BP 123/81
[2021-04-15 16:10] VITALS: BP 94/60
[2021-04-15 20:00] VITALS: BP 127/86
[2021-04-15] MEDS: ATORVASTATIN 40 MG TABLET PO SCH (20:32)
[2021-04-16 04:00] VITALS: BP 106/81
--- NOTE | 2021-04-16 06:19 | NUR ---
Pt's needs attended' ;drank a carton of Ensure; BMx2; incontince care done; needs attended; safety maintained; continue to monitor; continue plan of care
[2021-04-16 06:42] LABS: HEMATOCRIT 41.6 % (36.7-47.1); MEAN CORPUSCULAR VOLUME 92.2 fL (73.0-96.2); PLATELET COUNT (AUTO) 142 K/uL (152-348)
[2021-04-16 06:55] LABS: CREATININE 0.8 mg/dL (0.6-1.3); MAGNESIUM 2.2 mg/dL (1.8-2.4); POTASSIUM 4.2 mmol/L (3.5-5.1)
[2021-04-16] MEDS: METOPROLOL TARTRATE 50 MG TABLET PO SCH ×3 (07:02→23:25)
[2021-04-16] MEDS: PANTOPRAZOLE SODIUM 40 MG TABLET.DR PO SCH (07:02)
--- NOTE | 2021-04-16 08:00 | NUR ---
awake but confused, follows, doesn't answer questions, repositioned for breakfast
[2021-04-16] MEDS: ENSURE ENLIVE (VAN) 240 ML LIQUID PO SCH ×2 (08:18→16:46)
[2021-04-16] MEDS: DIGOXIN 125 MCG TABLET PO SCH (08:53)
[2021-04-16] MEDS: FUROSEMIDE 20 MG TABLET PO SCH (08:53)
[2021-04-16] MEDS: FINASTERIDE 5 MG TABLET PO SCH (08:53)
[2021-04-16] MEDS: APIXABAN 5 MG TABLET PO SCH ×2 (08:54→21:25)
[2021-04-16] MEDS: CLOTRIMAZOLE 1% CREAM 30 GM TUBE TOP SCH ×2 (08:55→16:47)
[2021-04-16] MEDS: DILTIAZEM HCL CD 180 MG CAP.SR.24H PO SCH (08:55)
[2021-04-16 12:00] VITALS: BP 104/77
--- NOTE | 2021-04-16 12:00 | NUR ---
family here visiting
[2021-04-16] MEDS ORDERED: OLAN2.5T27 PO (14:12)
[2021-04-16] MEDS ORDERED: DILT180C66 PO (14:12)
[2021-04-16] MEDS ORDERED: PANT40TA49 PO (14:12)
[2021-04-16] MEDS ORDERED: Lactose-Free Food PO (14:12)
[2021-04-16] MEDS ORDERED: CLOT30CR24 TOP (14:12)
[2021-04-16] MEDS ORDERED: METO50TA16 PO (14:12)
[2021-04-16] MEDS ORDERED: DIGO125T5 PO (14:12)
[2021-04-16] MEDS ORDERED: FURO20TA4 PO (14:12)
[2021-04-16 16:00] VITALS: BP 123/69
[2021-04-16] MEDS: OLANZAPINE 2.5 MG TABLET PO PRN (16:45)
--- NOTE | 2021-04-16 16:45 | NUR ---
agitated- medicated with zyprexa as ordered
[2021-04-16 20:00] VITALS: BP 125/80
--- NOTE | 2021-04-16 21:00 | NUR ---
PATIENT AWAKE BUT NON VERBAL, NO S/S OF PAIN AT THIS TIME, PATIENT LEFT LEG CELLULITIS HAS NO ADVERSE CHANGES NOTED, NO FURTHER REDNESS NOTED, NO INCREASE IN SIZE, PATIENT TOLERATE DIET, NO COUGHING NOTED, TOOK ALL PO MEDS BUT CRUSH WITH APPLES, NO AGITATION NOTED AT THIS TIME, CONT TO MONITOR.
[2021-04-16] MEDS: ATORVASTATIN 40 MG TABLET PO SCH (21:21)
[2021-04-17 04:00] VITALS: BP 123/82
--- NOTE | 2021-04-17 05:54 | NUR ---
PATIENT ASLEEP BUT AROUSABLE , NO S/S OF PAIN OR DISCOMFORT, TOLERATE CRUSH MEDS WITH APPLE SAUCE, PATIENT DRANK A BOTTLE OF ENSURE, AND ATE A SMALL CONTAINER OF APPLE SAUCE, RENDERED GOOD MOISE CARE FOR INCONTINENCE, PATIENT HAS NO BEHAVIORAL PROBLEM NOTED AT THIS TIME, CONT TO MONITOR.
[2021-04-17] MEDS: METOPROLOL TARTRATE 50 MG TABLET PO SCH (06:03)
[2021-04-17] MEDS: PANTOPRAZOLE SODIUM 40 MG TABLET.DR PO SCH (06:04)
[2021-04-17] MEDS: ENSURE ENLIVE (VAN) 240 ML LIQUID PO SCH (08:00)
[2021-04-17] MEDS: APIXABAN 5 MG TABLET PO SCH (09:16)
[2021-04-17] MEDS: DILTIAZEM HCL CD 180 MG CAP.SR.24H PO SCH (09:18)
[2021-04-17] MEDS: DIGOXIN 125 MCG TABLET PO SCH (09:18)
[2021-04-17] MEDS: FUROSEMIDE 20 MG TABLET PO SCH (09:18)
[2021-04-17] MEDS: FINASTERIDE 5 MG TABLET PO SCH (09:18)
[2021-04-17] MEDS: CLOTRIMAZOLE 1% CREAM 30 GM TUBE TOP SCH (09:18)
--- NOTE | 2021-04-17 10:35 | NUR ---
WOUND CARE CONSULT: PT SEEN FOR RASH TO INNER/LOWER BUTTOCKS, GROIN FOLDS AND PERINEUM. CONCUR WITH CURRENT TREATMENT. CLARIFIED TREATMENT ORDERS WITH NURSING STAFF AND HAND ROUNDER. MD IN AGREEMENT WITH PLAN OF CARE.
[2021-04-17 11:46] VITALS: BP 114/75
--- NOTE | 2021-04-17 13:30 | NUR ---
discharged patient with VS WNL. Photo taken on chart, skin intact, no open wound. Not in any pain or distress. Left with EMT via ambulance and at bedside. discharge instructions given and signed by the . [facility] made aware of the dc.
== END 2021-04-17 13:30 | DRG 871 ==
LOC: ER 04:13 → TELE3 08:23 → CCU 10:02 → TELE-TD3 04-09 21:05 → TELE3 04-10 11:29 → MEDSURG3 04-15 10:10
PROVIDERS: ADMIT Hospitalist; ATTEND Hospitalist
PROC: 02HV33Z Insertion of Infusion Device into Superior Vena Cava, Percutaneous Approach (ICD-10-PCS; principal; 2021-04-06)
PROC: 05H933Z Insertion of Infusion Device into Right Brachial Vein, Percutaneous Approach (ICD-10-PCS; 2021-04-14)
DX: A41.9 Sepsis, unspecified organism (principal); J96.91 Respiratory failure, unspecified with hypoxia; I50.31 Acute diastolic (congestive) heart failure; I48.20 Chronic atrial fibrillation, unspecified; L03.116 Cellulitis of left lower limb; J98.11 Atelectasis; L03.115 Cellulitis of right lower limb; E87.2 Acidosis; Z20.822 Contact with and (suspected) exposure to COVID-19; E78.5 Hyperlipidemia, unspecified; F03.90 Unspecified dementia, unspecified severity, without behavioral disturbance, psychotic disturbance, mood disturbance, and anxiety; F09 Unspecified mental disorder due to known physiological condition; Z79.01 Long term (current) use of anticoagulants; Z79.899 Other long term (current) drug therapy; D69.6 Thrombocytopenia, unspecified; S91.105A Unspecified open wound of left lesser toe(s) without damage to nail, initial encounter; W19.XXXA Unspecified fall, initial encounter; Y92.099 Unspecified place in other non-institutional residence as the place of occurrence of the external cause; R26.81 Unsteadiness on feet; R47.89 Other speech disturbances; I35.8 Other nonrheumatic aortic valve disorders; Z90.79 Acquired absence of other genital organ(s); Z93.6 Other artificial openings of urinary tract status; K21.9 Gastro-esophageal reflux disease without esophagitis; N40.0 Benign prostatic hyperplasia without lower urinary tract symptoms; Z91.81 History of falling; R41.0 Disorientation, unspecified
CPT/HCPCS: 36415; 36569; 70030-TC; 70450; 71045; 83605; 83735; 84100; 84443; 85025; 85730; 86140; 87040; 87086; 93005; 93307; 97161; A4663; A6209; C1758; G0378; J0692; J0696; J1160; J1940; J3010; J3370; J3475; J3490; J7030; J7040; J7050; J7060